=== PATIENT | female | born 1995 | race Caucasian/White ===

== ENCOUNTER → 2024-03-11 09:07 | Outpatient (REF) | payer BC, SELFPAY | LOC: WDC 09:07 | DX: N64.4 Mastodynia (principal); N63.10 Unspecified lump in the right breast, unspecified quadrant | CPT/HCPCS: 76642; 77062; 77066 ==

== ENCOUNTER → 2024-10-08 13:30 | Outpatient (REF) | payer BC, SELFPAY | LOC: MRI 3T 13:30 | PROVIDERS: ATTENDING PHYSICIAN Family Medicine Sports Medicine | DX: S43.432A Superior glenoid labrum lesion of left shoulder, initial encounter (principal) | CPT/HCPCS: 23350; 73040; 73222 ==